=== PATIENT | female | born 1980 | race Two or more races ===

== ENCOUNTER 2017-02-23 00:30 | Inpatient (IN) | payer MEDICAID ==
[~2017-02-23] VITALS: Ht 152.4 cm; Wt 90.5 kg
[2017-02-23 01:49] LABS: CALCIUM 8.7 mg/dL (8.5-10.1); CHLORIDE SERUM 104 mmol/L (98-107); CREATININE SERUM 0.8 mg/dL (0.6-1.0); GFR1 > 60 mL/min; GLUCOSE SERUM 127 mg/dL (74-106); POTASSIUM SERUM 4.4 mmol/L (3.5-5.1); SODIUM SERUM 140 mmol/L (136-145)
[2017-02-23 01:52] LABS: BASOPHIL % 0.4 % (0-2); PLATELET COUNT 269 x10^3mcL (130-400); RED CELL DISTRIBUTION WIDTH 12.8 % (11.5-14.5)
[2017-02-23 01:53] LABS: ALBUMIN 3.6 g/dL (3.4-5.0); ALKALINE PHOSPHATASE 107 U/L (46-116); ALT/SGPT 44 U/L (14-59); AST/SGOT 20 U/L (15-37); BILIRUBIN TOTAL 0.21 mg/dL (0.20-1.00); LIPASE 134 IU/L (73-393); TOTAL PROTEIN, SERUM 7.8 g/dL (6.4-8.2)
[2017-02-23 03:36] LABS: microscopic required? YES; urine erythrocyte 3+ (NEGATIVE)
[2017-02-23 05:00] VITALS: BP 126/67
[2017-02-23 05:45] LABS: PHOSPHOROUS 4.1 mg/dL (2.5-4.9)
[2017-02-23 05:50] LABS: FREE T4 1.05 ng/dL (0.76-1.46); FREE THYROXINE INDEX 3.1 ug/dL (1.4-4.5); T4(THYROXINE) 8.9 ug/dL (4.7-13.3)
[2017-02-23 06:07] LABS: CHOLESTEROL/HDL RATIO 2.9
[2017-02-23 07:06] LABS: AMPHETAMINE QUAL UR NONE DETECTED (NEG <=1000)
[2017-02-23 07:35] LABS: T3 TOTAL 1.25 ng/mL
[2017-02-23 09:18] VITALS: BP 113/72
[2017-02-23 12:00] VITALS: BP 129/82
[2017-02-23 18:28] VITALS: BP 140/79
[2017-02-23 21:24] VITALS: BP 115/70
[2017-02-24 05:23] VITALS: BP 116/66
[2017-02-24 06:31] LABS: BASOPHIL % 0.4 % (0-2); PLATELET COUNT 217 x10^3mcL (130-400)
[2017-02-24 06:57] LABS: CALCIUM 7.9 mg/dL (8.5-10.1); CHLORIDE SERUM 109 mmol/L (98-107); CREATININE SERUM 0.6 mg/dL (0.6-1.0); GFR1 > 60 mL/min; GLUCOSE SERUM 96 mg/dL (74-106); POTASSIUM SERUM 4.1 mmol/L (3.5-5.1); SODIUM SERUM 143 mmol/L (136-145)
[2017-02-24] MEDS ORDERED: LAC PO (08:30)
[2017-02-24] MEDS ORDERED: PYR100 PO (08:31)
[2017-02-24] MEDS ORDERED: BACTRIM DS1 TAB PO (08:35)
[2017-02-24 09:55] VITALS: BP 121/76
[2017-02-24 10:37] VITALS: BP 121/76
[2017-02-24 17:59] VITALS: BP 120/72
[2017-02-24 21:53] VITALS: BP 111/60
[2017-02-25 05:36] VITALS: BP 116/55
[2017-02-25 06:45] LABS: BASOPHIL % 0.4 % (0-2); PLATELET COUNT 220 x10^3mcL (130-400); RED CELL DISTRIBUTION WIDTH 12.7 % (11.5-14.5)
[2017-02-25 06:57] LABS: CALCIUM 8.6 mg/dL (8.5-10.1); CARBON DIOXIDE 26.3 mmol/L (21-32); CHLORIDE SERUM 111 mmol/L (98-107); CREATININE SERUM 0.5 mg/dL (0.6-1.0); GFR1 > 60 mL/min; GLUCOSE SERUM 105 mg/dL (74-106); PHOSPHOROUS 3.3 mg/dL (2.5-4.9); POTASSIUM SERUM 4.1 mmol/L (3.5-5.1); SODIUM SERUM 145 mmol/L (136-145)
[2017-02-25 09:15] VITALS: BP 129/75
[2017-02-25 09:18] VITALS: BP 126/65
[2017-02-25 14:11] VITALS: BP 126/65
== END 2017-02-25 16:20 | disposition home or self-care (01) | DRG 446 ==
LOC: ED 00:30 → MU 04:35 → DU 04:35 → MU 09:01
PROVIDERS: Emergency Medicine; Family Medicine; Urology; ADMIT Family Medicine
PROC: 0T778DZ Dilation of Left Ureter with Intraluminal Device, Via Natural or Artificial Opening Endoscopic (ICD-10-PCS; 2017-02-23)
PROC: 0TC78ZZ Extirpation of Matter from Left Ureter, Via Natural or Artificial Opening Endoscopic (ICD-10-PCS; principal; 2017-02-23 15:30)
DX: N13.2 Hydronephrosis with renal and ureteral calculous obstruction (principal); N17.0 Acute kidney failure with tubular necrosis; E66.01 Morbid (severe) obesity due to excess calories; E78.5 Hyperlipidemia, unspecified; Z68.39 Body mass index [BMI] 39.0-39.9, adult; R31.0 Gross hematuria
CPT/HCPCS: 83880; 84439; 94150; C1769; C2625; J0696; J1885; J2250; J2270; J2405; J2704; J3010; J3490; J7030; J7120; Q9958